=== PATIENT | female | born 1990 | race Caucasian/White ===

== ENCOUNTER 2018-07-11 12:43 | Emergency (ER) | payer OTHER ==
[~2018-07-11] VITALS: Ht 170.2 cm; Wt 115.2 kg
[2018-07-11 13:59] LABS: ABSOLUTE BASOPHIL COUNT 0 /CUMM (0.0-0.2); ABSOLUTE EOSINOPHIL COUNT 0.6 /CUMM (0.0-0.7); ABSOLUTE GRANULOCYTE CT 5.1 /CUMM (1.4-6.5); ABSOLUTE LYMPH COUNT 2.4 /CUMM (1.2-3.4); ABSOLUTE MONOCYTE COUNT 0.5 /CUMM (0.10-0.60); BASOPHIL % 0.4 % (0.0-2.0); EOSINOPHIL % 7.1 % (0-5); GRANULOCYTE % 58.2 % (42.2-75.2); HEMATOCRIT 44.1 % (37-47); MEAN CORPUSCULAR HGB 30.7 PG (27.0-31.0); MEAN CORPUSCULAR HGB CONC 33.8 G/DL (33.0-37.0); MEAN CORPUSCULAR VOLUME 90.8 FL (81.0-99.0); MEAN PLATELET VOLUME 8.9 FL (7.4-10.4); PLATELET COUNT 301 /CUMM (130-400); RED BLOOD CELL CT 4.86 /CUMM (4.20-5.40); WHITE BLOOD CELL COUNT 8.7 /CUMM (4.8-10.8)
--- NOTE | 2018-07-11 14:29 | ED GI/GU/ABDOMINAL COMPLAINT ---
History of Present Illness General Chief Complaint: Nausea, Vomiting, Diarrhea Stated Complaint: LOWER ABD PAIN, +NVD Source: patient, old records Exam Limitations: no limitations Vital Signs & Intake/Output Vital Signs & Intake/Output Vital Signs Date Time Temp Pulse Resp B/P B/P Pulse O2 O2 Flow FiO2 Mean Ox Delivery Rate 07/11 1645 98.2 68 18 110/68 98 Room Air 07/11 1514 Room Air 07/11 1438 98.6 64 16 120/78 100 Room Air 07/11 1252 96.5 92 20 141/84 97 Room Air Allergies Coded Allergies: acetaminophen (From VICODIN) (HIVES 07/11/18) hydrocodone (From VICODIN) (HIVES 07/11/18) Reconcile Medications Hyoscyamine (Levsin) 0.125 MG TABLET 1 TAB PO Q4 PRN ABDOMINAL PAIN Oxycodone HCl/Acetaminophen (Percocet 5-325 MG Tablet) 5 MG-325 MG TABLET 1-2 TAB PO Q6P PRN PAIN Triage Note: PT TO ED C/O RLQ RADIATING TO BACK X 2 DAYS. C/O N/V/D. HAD OUT PT U/S WITH OBGYN THAT WAS "NORMAL". DENIES S/S. STATES PAIN "SHOOTS UP AND TAKES MY BREATH AWAY". C/O HEADACHE. DIZZINESS. Triage Nurses Notes Reviewed? yes ? N Is pt currently ? No HPI: Patient presents with right lower quadrant pain that started 2 days ago. Positive diarrhea. The pain is sharp and stabbing in nature. There is no radiation. Positive anorexia. No fevers or chills. No dysuria or hematuria. 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 The pain is continued to she come into the emergency department. She rates the pain at 8 out of 10. Past History Travel History Traveled to [place] past 21 day No Medical History Any Pertinent Medical History? none Surgical History Surgical History: Psychosocial History What is your primary language Portuguese Tobacco Use: Current Daily Use Daily Tobacco Use Amount/Type: => 5 Cigarettes daily ETOH Use: denies use Illicit Drug Use: denies illicit drug use Family History Hx Contributory? No Review of Systems Review of Systems Constitutional: Reports: no symptoms. EENTM: Reports: no symptoms. Respiratory: Reports: no symptoms. Cardiovascular: Reports: no symptoms. GI: Reports: see HPI, abdominal pain, diarrhea. Genitourinary: Reports: no symptoms. Musculoskeletal: Reports: no symptoms. Skin: Reports: no symptoms. Neurological/Psychological: Reports: no symptoms. Hematologic/Endocrine: Reports: no symptoms. Immunologic/Allergic: Reports: no symptoms. All Other Systems: Reviewed and Negative Physical Exam Physical Exam General Appearance: well developed/nourished, alert, awake, anxious, moderate distress Head: atraumatic, normal appearance Eyes: Bilateral: PERRL, EOMI. Ears, Nose, Throat, Mouth: hearing grossly normal, moist mucous membrane Neck: normal inspection, supple, full range of motion Respiratory: normal breath sounds, chest non-tender, no respiratory distress, lungs clear Cardiovascular: regular rate/rhythm, normal peripheral pulses Gastrointestinal: normal bowel sounds, soft, non-tender, no organomegaly Back: normal inspection, normal range of motion Extremities: normal range of motion Neurologic/Psych: no motor/sensory deficits, awake, alert, oriented x 3, normal gait Skin: intact, normal color, warm/dry Core Measures ACS in differential dx? No Sepsis Present: No Sepsis Focused Exam Completed? No Progress Differential Diagnosis: appendicitis, biliary colic, cholecystitis, diverticulitis, ectopic , gastritis, hepatitis, ischemic bowel, inflamm bowel dis, intrauterine , kidney stone, ovarian cyst, ovarian torsion, UTI/pyelo Plan of Care: Orders Procedure Date/time Status URINE 07/11 1254 Complete URINALYSIS 07/11 1254 Complete LIPASE 07/11 1254 Complete LACTIC ACID 07/11 1254 Complete COMPREHENSIVE METABOLIC PANEL 07/11 1254 Complete CBC WITHOUT DIFFERENTIAL 07/11 1254 Complete Laboratory Tests 07/11/18 1554: Lactic Acid Cancelled 07/11/18 1329: Anion Gap 8, Estimated GFR > 60, BUN/Creatinine Ratio 26.0 H, Glucose 97, Lactic Acid 0.5 L, Calcium 9.5, Total Bilirubin 0.6, AST 37 H, ALT 76 H, Alkaline Phosphatase 69, Total Protein 7.4, Albumin 4.1, Globulin 3.3, Albumin/ Globulin Ratio 1.2, Lipase 49, CBC w Diff NO MAN DIFF REQ, RBC 4.86, MCV 90.8, MCH 30.7, MCHC 33.8, RDW 13.0, MPV 8.9, Gran % 58.2, Lymphocytes % 28.1, Monocytes % 6.2, Eosinophils % 7.1 H, Basophils % 0.4, Absolute Granulocytes 5.1, Absolute Lymphocytes 2.4, Absolute Monocytes 0.5, Absolute Eosinophils 0.6, Absolute Basophils 0 07/11/18 1306: Urinalysis LIGHT H, Urine Color STRAW, Urine Clarity CLEAR, Urine pH 6.0, Ur Specific [place] 1.010, Urine Protein NEG, Urine Ketones NEG, Urine Nitrite NEG, Urine Bilirubin NEG, Urine Urobilinogen 0.2, Ur Leukocyte Esterase NEG, Ur Microscopic SEDIMENT EXAMINED, Urine RBC 1-3, Urine WBC 1-3 H, Ur Epithelial Cells FEW, Urine Bacteria RARE H, Urine Mucus FEW, Urine Hemoglobin MOD H, Urine Glucose NEG, Urine Test NEGATIVE Diagnostic Imaging: Viewed by Me: CT Scan. Discussed w/RAD: CT Scan. Radiology Impression: PATIENT: PERI MADRIGAL PRESENT AGE: 28 PATIENT ACCOUNT NO: [id number] : 89 LOCATION: [facility] ORDERING PHYSICIAN: Arik KNIGHT SERVICE DATE: 07/11/18 EXAM TYPE: CAT - CT ABD & PELVIS W IV CONTRAST EXAMINATION: CT ABDOMEN AND PELVIS WITH CONTRAST CLINICAL INFORMATION: Right lower quadrant pain. Wrapped around to back. COMPARISON: None TECHNIQUE: Multidetector volumetric imaging was performed of the abdomen and pelvis following IV administration of 95 mL of Optiray 320 intravenous contrast. Sagittal and coronal reformatted images were obtained on the technologist's workstation. DLP: 991 mGy-cm FINDINGS: LUNG BASES: The visualized lung bases are unremarkable. LIVER, GALLBLADDER, AND BILIARY TREE: The liver is normal in size, shape, and attenuation. No focal hepatic lesion or biliary ductal dilatation is present. The gallbladder is surgically absent. PANCREAS: Unremarkable. SPLEEN: Unremarkable. ADRENAL GLANDS: Unremarkable. KIDNEYS AND URETERS: The kidneys are normal in size, shape, and attenuation. No hydronephrosis, hydroureter, or calculi seen. No perinephric stranding. BLADDER: Unremarkable. GASTROINTESTINAL TRACT: There is an increased number of lymph nodes in the right lower quadrant. These are within normal limits for size. The largest measures up to 5 mm. A probable normal appendix is visualized. At the level of the cecum there are 2 mildly hyperdense diverticula. There does not appear to be associated inflammation. The distal ileum is mildly distended. There is no hyper enhancement of the wall, however, relative to the remainder of the small bowel. There is no obstruction. The large bowel appears within normal limits. No intra-abdominal free air or free fluid. ABDOMINAL WALL: No significant hernia is appreciated. LYMPH NODES: Increased in number in the right lower quadrant as discussed. VASCULAR: Unremarkable. PELVIC VISCERA: Unremarkable. OSSEOUS STRUCTURES: Unremarkable. IMPRESSION: Mild inflammatory changes in the right lower quadrant raising the possibility of inflammatory conditions such as inflammatory bowel disease. Recommend clinical correlation. No CT evidence of for acute appendicitis. Status post cholecystectomy. DICTATED BY: Adrienne Carrington MD DATE/TIME DICTATED:07/11/181431 TYPE BAR AND SEGMENT ASSEMBLER:VIUPL DATE/TIME TRANSCRIBED:07/11/181431 CONFIDENTIAL, DO NOT COPY WITHOUT APPROPRIATE AUTHORIZATION. <Electronically signed in Other Vendor System> SIGNED BY: Adrienne Carrington MD 07/11/18 7960 Initial ED EKG: none Comments: D/W DR. ZHOU,HE REVIEWED THE CT SCAN. NO EVIDENCE OF APPY. D/W PT, SHE WILLRETURN TOMORROW FOR A RE-EVAL. Departure Departure Disposition: HOME OR SELF CARE Condition: Stable Clinical Impression Primary Impression: Lower abdominal pain, unspecified Referrals: Dexter NUNN,Milad Alfonso MD,Jameel Campbell (PCP/Family) Additional Instructions: FOLLOW UP WITH DR. WALSH FROM GI FOR EVALUATION RETURN IN THE MORNING FOR A RECHECK OR SOONER IF SYMPTOMS WORSEN OR FOR ANY CONCERNS Departure Forms: Customer Survey General Discharge Information Prescriptions: Current Visit Scripts Hyoscyamine (Levsin) 1 TAB PO Q4 PRN ABDOMINAL PAIN #20 TAB Oxycodone HCl/Acetaminophen (Percocet 5-325 MG Tablet) 1-2 TAB PO Q6P PRN PAIN #16 TAB
--- NOTE | 2018-07-11 14:46 | CT SCAN REPORT ---
EXAMINATION: CT ABDOMEN AND PELVIS WITH CONTRAST CLINICAL INFORMATION: Right lower quadrant pain. Wrapped around to back. COMPARISON: None TECHNIQUE: Multidetector volumetric imaging was performed of the abdomen and pelvis following IV administration of 95 mL of Optiray 320 intravenous contrast. Sagittal and coronal reformatted images were obtained on the technologist's workstation. DLP: 991 mGy-cm FINDINGS: LUNG BASES: The visualized lung bases are unremarkable. LIVER, GALLBLADDER, AND BILIARY TREE: The liver is normal in size, shape, and attenuation. No focal hepatic lesion or biliary ductal dilatation is present. The gallbladder is surgically absent. PANCREAS: Unremarkable. SPLEEN: Unremarkable. ADRENAL GLANDS: Unremarkable. KIDNEYS AND URETERS: The kidneys are normal in size, shape, and attenuation. No hydronephrosis, hydroureter, or calculi seen. No perinephric stranding. BLADDER: Unremarkable. GASTROINTESTINAL TRACT: There is an increased number of lymph nodes in the right lower quadrant. These are within normal limits for size. The largest measures up to 5 mm. A probable normal appendix is visualized. At the level of the cecum there are 2 mildly hyperdense diverticula. There does not appear to be associated inflammation. The distal ileum is mildly distended. There is no hyper enhancement of the wall, however, relative to the remainder of the small bowel. There is no obstruction. The large bowel appears within normal limits. No intra-abdominal free air or free fluid. ABDOMINAL WALL: No significant hernia is appreciated. LYMPH NODES: Increased in number in the right lower quadrant as discussed. VASCULAR: Unremarkable. PELVIC VISCERA: Unremarkable. OSSEOUS STRUCTURES: Unremarkable. IMPRESSION: Mild inflammatory changes in the right lower quadrant raising the possibility of inflammatory conditions such as inflammatory bowel disease. Recommend clinical correlation. No CT evidence of for acute appendicitis. Status post cholecystectomy.
[2018-07-11 16:45] VITALS: BP 110/68
[2018-07-11] MEDS ORDERED: PERCOCET 5-3251 EACH PO ×2 (17:54→19:13)
[2018-07-11] MEDS ORDERED: LEVSIN0.125 M1 PO ×2 (17:54→19:13)
[2018-07-14] MEDS ORDERED: CIPRO500 M1 PO (14:05)
[2018-07-14] MEDS ORDERED: FLAGYL500 MG PO (14:05)
== END 2018-07-11 18:11 ==
LOC: ERH 12:43
PROVIDERS: Physician Assistant Medical
DX: R10.31 Right lower quadrant pain (principal)
CPT/HCPCS: 74177; 81001; 81025; 96374; 96375; 96376; J1885; J2405